=== PATIENT | female | born 1930 | race Caucasian/White ===

== ENCOUNTER 2020-05-13 09:39 | Emergency (ER) | payer MEDICARE ==
[2020-05-13 10:30] LABS: Bilirubin Negative (Negative); Blood, Urine Negative (Negative); Clarity Clear (Clear); Glucose, Urine (Dipstick) Negative (Negative); Ketone, Urine Negative (Negative); Leukocyte Negative (Negative); Nitrite Positive (Negative); Protein, Urine (Dipstick) Negative (Neg-Trace); Urobilinogen 0.2 mg/dL (Less than 2)
[2020-05-13 10:31] LABS: Specific Gravity, Urine 1.028 (1.005-1.030)
[2020-05-13 10:40] LABS: #Basophils 0.1 thou/uL (0.0-0.2); #Eosinphils 0.1 thou/uL (0.0-0.7); #Lymphocytes 1.2 thou/uL (1.20-3.40); #Monocytes 1.1 thou/uL (0.11-0.59); %Basophils 0.6 % (0.0-1.0); %Eosinophils 0.8 % (0.0-10.0); %Lymphocytes 8.1 % (21.0-51.0); %Monocytes 7.6 % (0.0-10.0); %Neutrophils 82.9 % (42.0-75.0); Hemoglobin 17.5 g/dL (12.0-16.0); Mean Corpuscular HGB CONC 33.9 g/dL (32.0-36.0); Mean Corpuscular Hemoglobin 31.1 pg (27.0-31.0); Mean Corpuscular Volume 91.7 fL (78.0-98.0); Mean Platelet Volume 7.7 fL (7.4-10.4); Platelet Count 215 thou/uL (130-400); RBC Distribution Width 14.1 % (11.5-14.5); Red Blood Cell (RBC) Count 5.64 mill/uL (4.20-5.40); White Blood Cell (WBC) Count 14.5 thou/uL (4.8-10.8)
[2020-05-13 10:45] LABS: Bacteria/HPF 3+ HPF (None Seen); Calcium Oxalate Crystals 1+ HPF (None Seen); RBC/HPF None Seen HPF (0-3); Squamous Epithelial 0-3 HPF (0-3)
[2020-05-13 10:47] LABS: ALT (SGPT) 13 U/L (8-55); AST (SGOT) 16 U/L (5-34); Albumin 4.3 g/dL (3.4-4.8); Alkaline Phosphatase 109 U/L (40-110); Anion Gap 17 mmol/L (10-20); BUN (Urea Nitrogen) 20 mg/dL (9.8-20.1); Bilirubin, Total 1.5 mg/dL (0.2-1.2); Calc. Creatinine Clearance 0 mL/min (70-130); Calcium 10.1 mg/dL (7.8-10.44); Carbon Dioxide 28 mmol/L (23-31); Chloride 103 mmol/L (98-107); Globulin 3.3 g/dL (2.4-3.5); Glucose 178 mg/dL (83-110); Potassium 3.5 mmol/L (3.5-5.1); Protein, Total 7.6 g/dL (5.8-8.1); Sodium 144 mmol/L (136-145)
[2020-05-13 10:55] LABS: INR-International Normal Ratio 1.1; Prothrombin Time 14.3 sec (12.0-14.7)
[2020-05-13] MEDS ORDERED: traMADol HCl 50 MG TAB ONE (11:28)
[2020-05-13] MEDS ORDERED: Cephalexin 250 MG CAP ONE (11:29)
== END 2020-05-13 11:45 | disposition home or self-care (01) ==
LOC: BURERS 09:39
DX: N39.0 Urinary tract infection, site not specified (principal); M54.5 Low back pain; I10 Essential (primary) hypertension; E78.5 Hyperlipidemia, unspecified; I25.2 Old myocardial infarction; Z79.899 Other long term (current) drug therapy; W19.XXXA Unspecified fall, initial encounter
CPT/HCPCS: 36415; 74176; 80053; 81003; 81015; 85025; 85610

== ENCOUNTER 2020-05-16 14:37 | Inpatient (IN) | payer MEDICARE ==
[2020-05-16 15:17] LABS: #Basophils 0.1 thou/uL (0.0-0.2); #Eosinphils 0.1 thou/uL (0.0-0.7); #Monocytes 0.8 thou/uL (0.11-0.59); %Basophils 0.7 % (0.0-1.0); %Eosinophils 1.4 % (0.0-10.0); %Lymphocytes 10.1 % (21.0-51.0); %Monocytes 8.1 % (0.0-10.0); %Neutrophils 79.7 % (42.0-75.0); Hemoglobin 16.1 g/dL (12.0-16.0); Mean Corpuscular HGB CONC 33.2 g/dL (32.0-36.0); Mean Corpuscular Hemoglobin 30.9 pg (27.0-31.0); Mean Corpuscular Volume 93.2 fL (78.0-98.0); Mean Platelet Volume 7.5 fL (7.4-10.4); Platelet Count 189 thou/uL (130-400); Red Blood Cell (RBC) Count 5.19 mill/uL (4.20-5.40)
[2020-05-16 15:33] LABS: ALT (SGPT) 18 U/L (8-55); AST (SGOT) 21 U/L (5-34); Albumin 3.9 g/dL (3.4-4.8); Alkaline Phosphatase 87 U/L (40-110); Anion Gap 17 mmol/L (10-20); BUN (Urea Nitrogen) 19 mg/dL (9.8-20.1); Bilirubin, Total 1.2 mg/dL (0.2-1.2); Calc. Creatinine Clearance 0 mL/min (70-130); Calcium 9.9 mg/dL (7.8-10.44); Carbon Dioxide 32 mmol/L (23-31); Chloride 101 mmol/L (98-107); Glucose 148 mg/dL (83-110); Potassium 4.6 mmol/L (3.5-5.1); Protein, Total 6.9 g/dL (5.8-8.1); Sodium 145 mmol/L (136-145)
[2020-05-16 15:46] LABS: Bilirubin Negative (Negative); Blood, Urine Negative (Negative); Clarity Cloudy (Clear); Glucose, Urine (Dipstick) Negative (Negative); Ketone, Urine 15 mg/dL (Negative); Leukocyte Negative (Negative); Nitrite Negative (Negative); Protein, Urine (Dipstick) 100 mg/dL (Neg-Trace); Specific Gravity, Urine 1.025 (1.005-1.030)
[2020-05-16] MEDS ORDERED: cefTRIAXone\\ROCEPHIN 2 GM VIAL ONE (16:00)
[2020-05-16] MEDS ORDERED: Sodium Chloride 0.9% 100 ML ONE (16:00)
[2020-05-16 16:23] LABS: RBC/HPF 0-3 HPF (0-3); Renal Epithelial 0-3 HPF (None Seen); WBC/HPF 0-3 HPF (0-3)
[2020-05-16 16:24] LABS: Bacteria/HPF Rare-Few HPF (None Seen); Calcium Oxalate Crystals 2+ HPF (None Seen); Mucous/LPF 4+ LPF (<2+)
[2020-05-16 18:12] VITALS: BMI 30.1
[2020-05-16] MEDS ORDERED: Docusate 100 MG CAP PO PRN (18:35)
[2020-05-16] MEDS: Sodium Chloride 0.9% 1,000 ML IV SCH (20:05)
[2020-05-16] MEDS: Atorvastatin Calcium 10 MG TAB PO SCH (20:44)
[2020-05-16] MEDS ORDERED: Losartan Potassium 50 MG TAB PO SCH (21:00)
[2020-05-16] MEDS: Acetaminophen 325 MG TAB PO PRN (22:13)
[2020-05-17] MEDS: Levothyroxine Sodium 100 MCG TAB PO SCH (05:28)
[2020-05-17 05:47] LABS: #Basophils 0.1 thou/uL (0.0-0.2); #Eosinphils 0.2 thou/uL (0.0-0.7); #Lymphocytes 1.4 thou/uL (1.20-3.40); #Monocytes 0.8 thou/uL (0.11-0.59); #Neutrophils 7.2 thou/uL (1.40-6.50); %Basophils 0.8 % (0.0-1.0); %Eosinophils 1.7 % (0.0-10.0); %Lymphocytes 14.7 % (21.0-51.0); %Monocytes 8.5 % (0.0-10.0); %Neutrophils 74.3 % (42.0-75.0); Hemoglobin 14.5 g/dL (12.0-16.0); Mean Corpuscular HGB CONC 34.6 g/dL (32.0-36.0); Mean Corpuscular Hemoglobin 31.3 pg (27.0-31.0); Mean Corpuscular Volume 90.6 fL (78.0-98.0); Mean Platelet Volume 7.8 fL (7.4-10.4); Platelet Count 175 thou/uL (130-400); RBC Distribution Width 13.3 % (11.5-14.5); Red Blood Cell (RBC) Count 4.62 mill/uL (4.20-5.40); White Blood Cell (WBC) Count 9.6 thou/uL (4.8-10.8)
[2020-05-17 05:56] LABS: ALT (SGPT) 16 U/L (8-55); AST (SGOT) 17 U/L (5-34); Albumin 3.4 g/dL (3.4-4.8); Alkaline Phosphatase 72 U/L (40-110); Anion Gap 13 mmol/L (10-20); BUN (Urea Nitrogen) 13 mg/dL (9.8-20.1); Calc. Creatinine Clearance 77 mL/min (70-130); Calcium 8.5 mg/dL (7.8-10.44); Carbon Dioxide 26 mmol/L (23-31); Chloride 104 mmol/L (98-107); Globulin 2.4 g/dL (2.4-3.5); Glucose 130 mg/dL (83-110); Potassium 3.1 mmol/L (3.5-5.1); Protein, Total 5.8 g/dL (5.8-8.1); Sodium 140 mmol/L (136-145)
[2020-05-17] MEDS: Sodium Chloride 0.9% 1,000 ML IV SCH ×2 (06:39→15:13)
[2020-05-17 06:56] LABS: SARS-CoV-2 NAA Rapid Test Not Detected (NotDetected)
[2020-05-17] MEDS ORDERED: Metoprolol Tartrate 25 MG TAB PO SCH (09:00)
[2020-05-17] MEDS: Lidocaine 5% Patch TD SCH (09:53)
[2020-05-17] MEDS: Enoxaparin Sodium 30 MG/0.3 ML SYRINGE SC SCH (10:03)
[2020-05-17] MEDS: cefTRIAXone\\ROCEPHIN 1 GM in Sodium Chloride 0.9% 100 ML IVPB SCH (15:12)
[2020-05-17] MEDS: Acetaminophen 325 MG TAB PO PRN (21:23)
[2020-05-17] MEDS: Atorvastatin Calcium 10 MG TAB PO SCH (21:23)
[2020-05-17] MEDS: Melatonin 3 MG TAB PO SCH (21:23)
[2020-05-17] MEDS: Metoprolol Tartrate 25 MG TAB PO SCH (21:25)
[2020-05-17] MEDS: Losartan Potassium 50 MG TAB PO SCH (21:26)
[2020-05-17] MEDS: Lidocaine Patch Removal TOP SCH (21:26)
[2020-05-18] MEDS: Levothyroxine Sodium 100 MCG TAB PO SCH (05:11)
[2020-05-18] MEDS: Sodium Chloride 0.9% 1,000 ML IV SCH ×2 (05:11→08:06)
[2020-05-18 06:21] LABS: ALT (SGPT) 10 U/L (8-55); AST (SGOT) 12 U/L (5-34); Albumin 3.2 g/dL (3.4-4.8); Alkaline Phosphatase Less than 8 U/L (40-110); Anion Gap 12 mmol/L (10-20); BUN (Urea Nitrogen) 7 mg/dL (9.8-20.1); Bilirubin, Total 0.9 mg/dL (0.2-1.2); Calc. Creatinine Clearance 67 mL/min (70-130); Calcium 8.6 mg/dL (7.8-10.44); Carbon Dioxide 29 mmol/L (23-31); Chloride 103 mmol/L (98-107); Globulin 2.5 g/dL (2.4-3.5); Glucose 130 mg/dL (83-110); Potassium 3.3 mmol/L (3.5-5.1); Protein, Total 5.7 g/dL (5.8-8.1); Sodium 141 mmol/L (136-145)
[2020-05-18] MEDS: Potassium Chloride 20 MEQ TAB PO SCH (08:04)
[2020-05-18] MEDS: Metoprolol Tartrate 25 MG TAB PO SCH ×2 (09:04→20:46)
[2020-05-18] MEDS: Lidocaine 5% Patch TD SCH (09:05)
[2020-05-18] MEDS: Enoxaparin Sodium 30 MG/0.3 ML SYRINGE SC SCH (09:05)
[2020-05-18] MEDS: cefTRIAXone\\ROCEPHIN 1 GM in Sodium Chloride 0.9% 100 ML IVPB SCH (15:53)
[2020-05-18] MEDS: Losartan Potassium 50 MG TAB PO SCH (20:47)
[2020-05-18] MEDS: Melatonin 3 MG TAB PO SCH (20:56)
[2020-05-18] MEDS: Atorvastatin Calcium 10 MG TAB PO SCH (20:56)
[2020-05-18] MEDS: Lidocaine Patch Removal TOP SCH (20:56)
[2020-05-19] MEDS: Acetaminophen 325 MG TAB PO PRN (00:11)
[2020-05-19] MEDS: Levothyroxine Sodium 100 MCG TAB PO SCH (05:09)
[2020-05-19] MEDS: Lidocaine 5% Patch TD SCH (08:53)
[2020-05-19] MEDS: Triamterene/Hydrochlorothiazide 37.5 mg/25 mg Tablet PO SCH (08:53)
[2020-05-19] MEDS: Metoprolol Tartrate 25 MG TAB PO SCH ×2 (08:53→20:50)
[2020-05-19] MEDS: Potassium Chloride 20 MEQ TAB PO SCH (08:54)
[2020-05-19] MEDS: Enoxaparin Sodium 30 MG/0.3 ML SYRINGE SC SCH (08:54)
[2020-05-19] MEDS: cefTRIAXone\\ROCEPHIN 1 GM in Sodium Chloride 0.9% 100 ML IVPB SCH (15:38)
[2020-05-19] MEDS: Atorvastatin Calcium 10 MG TAB PO SCH (20:50)
[2020-05-19] MEDS: Losartan Potassium 50 MG TAB PO SCH (20:50)
[2020-05-19] MEDS: Melatonin 3 MG TAB PO SCH (20:50)
[2020-05-19] MEDS: Lidocaine Patch Removal TOP SCH (20:56)
[2020-05-20] MEDS: Levothyroxine Sodium 100 MCG TAB PO SCH (05:10)
[2020-05-20 05:47] VITALS: BP 175/80; TEMP 97.2
[2020-05-20] MEDS: Lidocaine 5% Patch TD SCH (09:41)
[2020-05-20] MEDS: Potassium Chloride 20 MEQ TAB PO SCH (09:41)
[2020-05-20] MEDS: Triamterene/Hydrochlorothiazide 37.5 mg/25 mg Tablet PO SCH (09:42)
[2020-05-20] MEDS: Metoprolol Tartrate 25 MG TAB PO SCH (09:42)
[2020-05-20] MEDS: Enoxaparin Sodium 30 MG/0.3 ML SYRINGE SC SCH (09:42)
== END 2020-05-20 11:15 | disposition swing bed (61) | DRG 689 ==
LOC: BURERS 14:37 → BURMED 16:19
PROVIDERS: ADMIT Family Medicine; ATTEND Family Medicine
DX: N39.0 Urinary tract infection, site not specified (principal); J18.9 Pneumonia, unspecified organism; I10 Essential (primary) hypertension; E78.5 Hyperlipidemia, unspecified; G89.29 Other chronic pain; E86.0 Dehydration; M54.9 Dorsalgia, unspecified; M81.0 Age-related osteoporosis without current pathological fracture; E87.6 Hypokalemia; M47.816 Spondylosis without myelopathy or radiculopathy, lumbar region; R53.81 Other malaise; Z90.710 Acquired absence of both cervix and uterus; I25.2 Old myocardial infarction; Z88.2 Allergy status to sulfonamides; Z88.8 Allergy status to other drugs, medicaments and biological substances
CPT/HCPCS: 0240U; 36415; 71045; 80053; 81003; 81015; 83605; 85025; 87040; 87086; 96365; J0696; J1650; J1956; J3490; J7050

== ENCOUNTER 2020-05-20 11:15 | Inpatient (IN) | payer MEDICARE ==
[2020-05-20] MEDS ORDERED: Docusate 100 MG CAP PO PRN (15:48)
[2020-05-20] MEDS ORDERED: Acetaminophen 325 MG TAB PO PRN (15:48)
[2020-05-20] MEDS ORDERED: cefTRIAXone\\ROCEPHIN 1 GM VIAL IVPB SCH (16:00)
[2020-05-20] MEDS: cefTRIAXone\\ROCEPHIN 1 GM in Sodium Chloride 0.9% 100 ML IVPB SCH (17:08)
[2020-05-20] MEDS: Atorvastatin Calcium 10 MG TAB PO SCH (20:13)
[2020-05-20] MEDS: Metoprolol Tartrate 25 MG TAB PO SCH (20:13)
[2020-05-20] MEDS: Losartan Potassium 50 MG TAB PO SCH (20:14)
[2020-05-20] MEDS: Melatonin 3 MG TAB PO SCH (20:14)
[2020-05-20] MEDS: Transdermal Patch Removal TOP SCH (22:11)
[2020-05-21 05:11] LABS: #Basophils 0.1 thou/uL (0.0-0.2); #Eosinphils 0.3 thou/uL (0.0-0.7); #Lymphocytes 1.9 thou/uL (1.20-3.40); #Monocytes 0.9 thou/uL (0.11-0.59); #Neutrophils 5.9 thou/uL (1.40-6.50); %Basophils 0.9 % (0.0-1.0); %Lymphocytes 21.2 % (21.0-51.0); %Monocytes 9.4 % (0.0-10.0); %Neutrophils 65.5 % (42.0-75.0); Hemoglobin 14.7 g/dL (12.0-16.0); Mean Corpuscular HGB CONC 34.1 g/dL (32.0-36.0); Mean Corpuscular Volume 90.9 fL (78.0-98.0); Mean Platelet Volume 7.3 fL (7.4-10.4); Platelet Count 208 thou/uL (130-400); RBC Distribution Width 13.6 % (11.5-14.5); Red Blood Cell (RBC) Count 4.73 mill/uL (4.20-5.40)
[2020-05-21 05:25] LABS: ALT (SGPT) 20 U/L (8-55); AST (SGOT) 17 U/L (5-34); Albumin 3.4 g/dL (3.4-4.8); Alkaline Phosphatase 88 U/L (40-110); Anion Gap 13 mmol/L (10-20); BUN (Urea Nitrogen) 11 mg/dL (9.8-20.1); Bilirubin, Total 0.7 mg/dL (0.2-1.2); Calc. Creatinine Clearance 64 mL/min (70-130); Calcium 9.1 mg/dL (7.8-10.44); Carbon Dioxide 31 mmol/L (23-31); Chloride 101 mmol/L (98-107); Globulin 2.3 g/dL (2.4-3.5); Glucose 143 mg/dL (83-110); Potassium 3.5 mmol/L (3.5-5.1); Protein, Total 5.7 g/dL (5.8-8.1); Sodium 141 mmol/L (136-145)
[2020-05-21] MEDS: Levothyroxine Sodium 100 MCG TAB PO SCH (05:45)
[2020-05-21] MEDS: Fish Oil 1,000 MG CAP PO SCH (09:13)
[2020-05-21] MEDS: Potassium Chloride 20 MEQ TAB PO SCH (09:13)
[2020-05-21] MEDS: Triamterene/Hydrochlorothiazide 37.5 mg/25 mg Tablet PO SCH (09:14)
[2020-05-21] MEDS: Aspirin 81 mg Enteric Coated Tablet PO SCH (09:14)
[2020-05-21] MEDS: Cholecalciferol 1,000 UNITS (25 MCG) TAB PO SCH (09:14)
[2020-05-21] MEDS: Metoprolol Tartrate 25 MG TAB PO SCH ×2 (09:14→20:44)
[2020-05-21] MEDS: Ascorbic Acid 500 mg Chewable Tablet PO SCH (09:14)
[2020-05-21] MEDS: Vit A,C & E/Lutein/Minerals Tablet PO SCH (09:15)
[2020-05-21] MEDS: Saccharomyces boulardii 250 MG CAP PO SCH (09:15)
[2020-05-21] MEDS: Lidocaine 5% Patch TD SCH (09:19)
[2020-05-21] MEDS: Enoxaparin Sodium 30 MG/0.3 ML SYRINGE SC SCH (09:19)
[2020-05-21 10:32] VITALS: BMI 30.2
[2020-05-21] MEDS: cefTRIAXone\\ROCEPHIN 1 GM in Sodium Chloride 0.9% 100 ML IVPB SCH (17:30)
[2020-05-21] MEDS: Losartan Potassium 50 MG TAB PO SCH (20:44)
[2020-05-21] MEDS: Atorvastatin Calcium 10 MG TAB PO SCH (20:44)
[2020-05-21] MEDS: Melatonin 3 MG TAB PO SCH (20:44)
[2020-05-21] MEDS: Transdermal Patch Removal TOP SCH (20:45)
[2020-05-22] MEDS: Levothyroxine Sodium 100 MCG TAB PO SCH (05:58)
[2020-05-22] MEDS: Metoprolol Tartrate 25 MG TAB PO SCH ×2 (09:45→21:12)
[2020-05-22] MEDS: Triamterene/Hydrochlorothiazide 37.5 mg/25 mg Tablet PO SCH (09:46)
[2020-05-22] MEDS: Saccharomyces boulardii 250 MG CAP PO SCH (09:46)
[2020-05-22] MEDS: Enoxaparin Sodium 30 MG/0.3 ML SYRINGE SC SCH (09:46)
[2020-05-22] MEDS: Vit A,C & E/Lutein/Minerals Tablet PO SCH (09:46)
[2020-05-22] MEDS: Fish Oil 1,000 MG CAP PO SCH (09:46)
[2020-05-22] MEDS: Cholecalciferol 1,000 UNITS (25 MCG) TAB PO SCH (09:47)
[2020-05-22] MEDS: Potassium Chloride 20 MEQ TAB PO SCH (09:47)
[2020-05-22] MEDS: Aspirin 81 mg Enteric Coated Tablet PO SCH (09:47)
[2020-05-22] MEDS: Ascorbic Acid 500 mg Chewable Tablet PO SCH (09:47)
[2020-05-22] MEDS: Lidocaine 5% Patch TD SCH (10:03)
[2020-05-22] MEDS: cefTRIAXone\\ROCEPHIN 1 GM in Sodium Chloride 0.9% 100 ML IVPB SCH (17:46)
[2020-05-22] MEDS: Melatonin 3 MG TAB PO SCH (21:13)
[2020-05-22] MEDS: Losartan Potassium 50 MG TAB PO SCH (21:13)
[2020-05-22] MEDS: Transdermal Patch Removal TOP SCH (21:14)
[2020-05-22] MEDS: Atorvastatin Calcium 10 MG TAB PO SCH (21:14)
[2020-05-23] MEDS: Levothyroxine Sodium 100 MCG TAB PO SCH (05:22)
[2020-05-23 06:14] VITALS: BP 147/68; TEMP 97.3
[2020-05-23] MEDS: Enoxaparin Sodium 30 MG/0.3 ML SYRINGE SC SCH (09:01)
[2020-05-23] MEDS: Vit A,C & E/Lutein/Minerals Tablet PO SCH (09:01)
[2020-05-23] MEDS: Metoprolol Tartrate 25 MG TAB PO SCH (09:01)
[2020-05-23] MEDS: Cholecalciferol 1,000 UNITS (25 MCG) TAB PO SCH (09:01)
[2020-05-23] MEDS: Fish Oil 1,000 MG CAP PO SCH (09:01)
[2020-05-23] MEDS: Aspirin 81 mg Enteric Coated Tablet PO SCH (09:02)
[2020-05-23] MEDS: Triamterene/Hydrochlorothiazide 37.5 mg/25 mg Tablet PO SCH (09:02)
[2020-05-23] MEDS: Potassium Chloride 20 MEQ TAB PO SCH (09:02)
[2020-05-23] MEDS: Ascorbic Acid 500 mg Chewable Tablet PO SCH (09:02)
[2020-05-23] MEDS: Lidocaine 5% Patch TD SCH (09:02)
[2020-05-23] MEDS: Saccharomyces boulardii 250 MG CAP PO SCH (09:02)
== END 2020-05-23 13:35 | disposition home or self-care (01) | DRG 689 ==
LOC: BURMED 11:15 → UNDOADMIN 11:15
PROVIDERS: ADMIT Family Medicine; ATTEND Family Medicine
DX: N39.0 Urinary tract infection, site not specified (principal); J18.9 Pneumonia, unspecified organism; R53.1 Weakness; G89.29 Other chronic pain; M54.9 Dorsalgia, unspecified
CPT/HCPCS: 36415; 71046; 80053; 85025; J0696; J1650; J3490